=== PATIENT | male | born 1945 ===

== ENCOUNTER 2017-01-06 13:49 | Inpatient (IN) | payer MEDICARE ==
[~2017-01-06] VITALS: Ht 177.8 cm; Wt 92.8 kg
[2017-01-17] MEDS ORDERED: ZEBETA5 MG PO (08:38)
[2017-01-17] MEDS ORDERED: LIPITOR DPS20 MG PO (08:38)
[2017-01-17] MEDS ORDERED: ASA325 MG PO (08:38)
[2017-01-17] MEDS ORDERED: NORVASC5 MG PO (08:38)
[2017-01-17] MEDS ORDERED: FLOMAX DPS0.4 MG PO (08:38)
[2017-01-17] MEDS ORDERED: NICOTINE LOZENGE2 MG PO (08:39)
[2017-01-17] MEDS ORDERED: VITAMIN D31000 UNIT PO (08:39)
[2017-01-17] MEDS ORDERED: SENOKOT S1 TAB PO (08:39)
[2017-01-17] MEDS ORDERED: IRON325 M1 PO (08:40)
[2017-01-17] MEDS ORDERED: TYLENOL DPS325 MG PO (08:40)
[2017-01-17] MEDS ORDERED: ASCORBIC ACID500 MG PO (08:40)
--- NOTE | 2017-02-17 09:40 | DS ---
ADMIT: 01/06/2017 RM/LOC: [address] [facility] MR#: [id number] [facility] [address] [place] [id number] [address] [place] [address] General Discharge Summary SEX: M AGE: 71 : 1945 ADMISSION DATE: 01/06/2017 DISCHARGE DATE: 01/16/2017 DISCHARGE DIAGNOSES: Stroke 01.1, left body involvement, right brain, I63.511 cerebral infarction due to unspecified occlusion or stenosis of right middle cerebral artery, onset of 01/02/2017, comorbid conditions, per initial H and P. Other diagnoses per hospital course below. HOSPITAL COURSE: Please see my initial H and P for details prior to transfer to the IRU. Pain and bowel regimen was adjusted. Incentive spirometry encouraged. Dietitian consulted. Dietitian followed to optimize nutrition. Pharmacy followed to optimize medication management. Was already on aspirin for DVT prophylaxis along with mechanical means and early ambulation. Lab was monitored regularly. Chewing gum for nicotine replacement. Links to smoking cessation discharge tool kit. PVR was normal. B12 was low normal. MMA checked with lab to confirm B12 deficiency. Iron deficiency replaced. UA with micro obtained due to leukocytosis. Melatonin for insomnia. Trazodone p.r.n. insomnia. Hydralazine p.r.n. systolic blood pressure greater than 160 for hypertension control. Hydralazine adjusted parameters. Insomnia addressed again. Increasing melatonin. Trazodone adjusted. Bowel regimen adjusted for constipation. PVR again normal. Vitamin D deficiency replaced. Slow-Mag started for nocturia and frequency. BPH suspected. Flomax increased for that condition. Hydralazine, melatonin, and trazodone all discontinued. The patient was medically stable at the time of discharge. Please see IRU interdisciplinary discharge summary for details regarding progress in therapy. DISCHARGE DISPOSITION: Home with family. DISCHARGE MEDICATIONS: Please see discharge med rec. FOLLOWUP: Primary care provider at the [facility] on February 09 at 9:30 a.m. with the lab at 10:30 a.m. Nutrition at 11:30. Bere Araujo appointment. Alfredo Love MD/ karthik JOB #: [id number] CC:
== END 2017-01-16 10:32 | disposition home or self-care (01) | DRG 57 ==
LOC: 6IRU 15:50
PROVIDERS: ADMIT Physical Medicine & Rehabilitation
PROC: F07Z9ZZ Gait Training/Functional Ambulation Treatment (ICD-10-PCS; principal; 2017-01-06)
PROC: F06ZDZZ Swallowing Dysfunction Treatment (ICD-10-PCS; principal; 2017-01-06)
DX: I69.391 Dysphagia following cerebral infarction (principal); E11.9 Type 2 diabetes mellitus without complications; D64.9 Anemia, unspecified; R13.10 Dysphagia, unspecified; I10 Essential (primary) hypertension; E53.8 Deficiency of other specified B group vitamins; R44.3 Hallucinations, unspecified; I69.319 Unspecified symptoms and signs involving cognitive functions following cerebral infarction; I69.398 Other sequelae of cerebral infarction; R41.0 Disorientation, unspecified; M62.81 Muscle weakness (generalized); R26.89 Other abnormalities of gait and mobility; G47.00 Insomnia, unspecified; G47.20 Circadian rhythm sleep disorder, unspecified type; N40.1 Benign prostatic hyperplasia with lower urinary tract symptoms; R35.1 Nocturia; R35.0 Frequency of micturition; E78.5 Hyperlipidemia, unspecified